=== PATIENT | female | born 1970 | race Hispanic/Latino ===

== ENCOUNTER 2016-07-25 18:12 | Emergency (ER) | payer BC ==
[2016-07-25 18:24] VITALS: PULSE 91; RESP 16; TEMP 98.2; O2SAT 100
[2016-07-25 18:54] VITALS: BP 142/90
--- NOTE | 2016-07-25 19:15 | ED PDOC ---
HPI: Chest Pain Time Seen by Provider: 07/25/16 18:59 Chief Complaint (Nursing): Chest Pain Chief Complaint (Provider): Chest Pain History Per: Patient Additional Complaint(s): Pt. states at approximately 1600 today she developed "pinching-like midsternal chest pain." Reports shortly after she developed numbness to her R arm. Pt. states since waiting in the ED symptoms have resolved. Denies SOB, N/V, fever, cough, hemoptysis, leg pain, hx of DVT/PE, hormonal therapy, recent surgery. Past Medical History Reviewed: Historical Data, Nursing Documentation, Vital Signs Vital Signs: Last Vital Signs Temp 98.2 F 07/25/16 18:22 Pulse 91 H 07/25/16 19:16 Resp 16 07/25/16 18:22 BP 142/90 07/25/16 18:50 Pulse Ox 100 07/25/16 19:16 - Medical History PMH: Anxiety, Depression - Family History Family History: States: CAD (mother, father, brother, and uncle) - Immunization History Hx Tetanus Toxoid Vaccination: No Hx Influenza Vaccination: No Hx Pneumococcal Vaccination: No - Home Medications Home Medications: Ambulatory Orders Medication Instructions Recorded Cyclobenzaprine [Cyclobenzaprine 10 mg PO TID #20 tab 06/18/16 HCl] Ibuprofen [Motrin] 600 mg PO Q6 #20 tab 06/18/16 Lamotrigine [Lamictal] 1 tab PO DAILY 06/18/16 buPROPion SR [Wellbutrin SR 150 MG] 1 tab PO DAILY 06/18/16 clonazePAM [Klonopin] 1 mg PO PRN PRN 06/18/16 - Allergies Allergies/Adverse Reactions: Allergies Allergy/AdvReac Type Severity Reaction Status Date / Time No Known Allergies Allergy Verified 01/03/15 16:18 BASIL Risk Score for UA/NSTEMI - BASIL Risk Score Age > 64: NO 3 or more CAD Risk Factors: NO Known CAD (Stenosis greater than 50%): NO Aspirin use in past 7 days: NO Severe Angina: NO EKG ST changes greater than 0.5mm: NO Positive Cardiac Marker: NO BASIL Score: 0 Risk %: 5% Review of Systems ROS Statement: Except As Marked, All Systems Reviewed And Found Negative Cardiovascular: Positive for: Chest Pain Physical Exam - Reviewed Nursing Documentation Reviewed: Yes Vital Signs Reviewed: Yes - Physical Exam Appears: Positive for: Well, Non-toxic, No Acute Distress Head Exam: Positive for: ATRAUMATIC, NORMAL INSPECTION, NORMOCEPHALIC Skin: Positive for: Normal Color, Warm. Negative for: Rash Eye Exam: Positive for: EOMI, Normal appearance, PERRL ENT: Positive for: Normal ENT Inspection Neck: Positive for: Normal, Painless ROM Cardiovascular/Chest: Positive for: Regular Rate, Rhythm, Chest Non Tender Respiratory: Positive for: CNT, Normal Breath Sounds Gastrointestinal/Abdominal: Positive for: Normal Exam, Soft. Negative for: Tenderness Back: Positive for: Normal Inspection Extremity: Positive for: Normal ROM Neurologic/Psych: Positive for: Alert, Oriented - Laboratory Results Result Diagrams: 07/25/16 19:15 07/25/16 19:15 - ECG ECG: Positive for: Interpreted By Me ECG Rhythm: Positive for: Sinus Rhythm. Negative for: ST/T Changes Rate: 91 O2 Sat by Pulse Oximetry: 100 - Progress ED Course And Treament: Pt. was informed that CXR is necessary to complete evaluation but refused. Labs ordered. Disposition - Clinical Impression Clinical Impression: Chest pain - Patient ED Disposition Is Patient to be Admitted: No - Disposition Disposition: Routine/Home Disposition Time: 20:17 Condition: STABLE Instructions: Chest Pain (ED)
[2016-07-25 19:33] LABS: BASO % 0.6 % (0.0-2.0); EOS # 0.1 K/uL (0.0-0.7); EOS % 2.3 % (0.0-4.0); LYMPH # 1.1 K/uL (1.0-4.3); LYMPH % 24.8 % (20.0-40.0); MEAN CELL VOLUME 90.9 fl (81.0-99.0); MEAN CORPUSCULAR HEMOGLOBIN 29.9 pg (27.0-31.0); MEAN CORPUSCULAR HGB CONC 32.9 g/dL (33.0-37.0); MONO # 0.5 K/uL (0.0-0.8); MONO % 10.8 % (0.0-10.0); NEUT # 2.6 K/uL (1.8-7.0); NEUT % 61.5 % (50.0-75.0); RED CELL DISTRIBUTION WIDTH 13.7 % (11.5-14.5); WHITE BLOOD COUNT 4.3 K/uL (4.8-10.8)
[2016-07-25 19:43] LABS: ALB/GLOB RATIO 1.4 (1.0-2.1); ALKALINE PHOSPHATASE 54 U/L (38-126); ALT/SGPT 40 U/L (9-52); AST/SGOT 41 U/L (14-36); BILIRUBIN,TOTAL 0.7 mg/dl (0.2-1.3); BLOOD UREA NITROGEN 11 mg/dl (7-17); CALCIUM 8.9 mg/dL (8.4-10.2); CARBON DIOXIDE 24 mmol/L (22-30); CHLORIDE 102 mmol/L (98-107); GFR AFRICAN-AMERICAN > 60; GLUCOSE,RANDOM 87 mg/dL (65-105); SODIUM 140 mmol/l (132-148); TOTAL PROTEIN 7.1 G/DL (6.3-8.2)
== END 2016-07-25 20:38 | disposition home or self-care (01) ==
LOC: H.ER 18:12
DX: R07.89 Other chest pain (principal)